=== PATIENT | male | born 1995 | race Two or more races ===

== ENCOUNTER 2024-12-11 11:46 | Emergency (ER) | payer MEDICAID, SELFPAY ==
[2024-12-11 11:51] VITALS: BP 119/83; PULSE 88; RESP 17; TEMP 36.9; O2SAT 98; BMI 20.9
[2024-12-11 12:06] VITALS: BMI 20.9
[2024-12-11 14:21] VITALS: BP 135/82; PULSE 67; RESP 17; TEMP 37.1; O2SAT 100
--- NOTE | 2024-12-11 15:09 | PD.EDMEDCL ---
ED Medical Clearance RME/HPI General Chief complaint: Medical Clearance Stated complaint: LONGTERM CLEARANCE Time Seen by Provider: 12/11/24 12:47 Arrival date/time: 12/11/24 11:46 Limitations: no limitations RME / HPI RME / HPI Narrative: DR. MCCALL MAIN ED EVALUATION: 29 year old male with no past medical history presents to the Emergency Department brought in by police as a medical clearance for chronic right finger infection. Patient states this is a chronic problem and he would not have been to the emergency department if he was not arrested. Patient was seen here on 10/09/23 for the same right index infection and was treated with Clindamycin at that time. Patient denies any new trauma. Related Information Previous Rx's ?Medication ?Instructions ?Recorded doxycycline hyclate 100 mg capsule 100 mg PO BID #20 caps 12/11/24 Allergies Allergy/AdvReac Type Severity Reaction Status Date / Time No Known Allergies Allergy Verified 12/11/24 12:11 Review of Systems Review of Systems Systems Reviewed: All systems reviewed, normal except as documented Narrative Review of Systems: GEN: No fever, no chills, no weight loss EYES: No discharge, no visual changes, no pain HEENT: No ear pain, no congestion, no sore throat PULM: No shortness of breath, no cough, no congestion CV: No chest pain, no dyspnea on exertion, no palpitations GI: No nausea, no vomiting, no diarrhea, no pain, no constipation : No frequency, no urgency and no dysuria MUSC/SKEL: No joint pain, no back pain SKIN: No rash. + chronic right finger infection PSYCH: No hallucinations, no depression HEME/LYMPH: No easy bleeding or bruising tendencies NEURO: No weakness, no headache Past Medical History Social History SMOKING STATUS: Current every day smoker SUBSTANCE USE: unknown ALCOHOL: Never ED Exam General Limitations: Present no limitations General appearance: Present alert, in no apparent distress and other (disheveled, hands cuffed) Head Head exam: Present atraumatic, normocephalic and normal inspection Eye Eye exam: Present normal appearance, PERRL and EOMI ENT ENT exam: Present normal exam, normal oropharynx and mucous membranes moist Neck Neck exam: Present normal inspection, full ROM and trachea midline Chest Chest inspection: Present normal inspection and symmetric chest wall rise Respiratory Respiratory exam: Present normal lung sounds bilaterally Cardiovascular Cardiovascular exam: Present regular rate, normal rhythm and normal heart sounds Abdominal Exam Abdominal exam: Present soft and normal bowel sounds Extremities Exam Extremities exam: Present full ROM Expanded Upper Extremity Exam Hand exam: Present other (right index finger is missing a part, which is chronic; swelling to the dorsal right index finger, no errhythema, no tenderness on flexor tendon sheath; NV is intact) Back Exam Back exam: Present normal inspection and full ROM Neurological Exam Neurological exam: Present alert, oriented X3 and CN II-XII intact Psychiatric Psychiatric exam: Present normal affect and normal mood Skin Skin exam: Present warm, dry, intact and normal color Course Quality Measures none Orders Category Date Time Status Doxycycline [Vibramycin] Med 12/11/24 15:18 Discontinued 100 mg PO X1 ONE Vital Signs Vital signs: Vital Signs Temperature 98.4 F 12/11/24 11:51 Pulse Rate 88 12/11/24 11:51 Respiratory Rate 17 12/11/24 11:51 Blood Pressure 119/83 12/11/24 11:51 Pulse Oximetry (%) 98 12/11/24 11:51 Oxygen Delivery Method Room Air 12/11/24 11:51 Medical Clearance MDM Narrative MDM Narrative:: Monique Peterson am scribing for and in the presence of Dr. Mccall. Patient data External records reviewed:: [facility] previous records (Reviewed last ED visit dated 10/09/23, discharged with the following: Cellulitis.) Clinical information provided by:: patient and law enforcement Social determinants that could affect healthcare access:: housing (homeless) Patient has the following chronic illnesses:: Chronic cellulitis How is presenting disease/condition affected by chronic disease/condition?: exacerbated by Evaluation data The following diagnostics were reviewed and interpreted by me:: other (specify) (none) Lab and/or radiology exams considered but not ordered:: none Interpretation Summary: n/a Medications / Prescriptions Medications or Prescriptions considered but not ordered:: none Medication administrations:: Medication Administration History Discontinued Medications Doxycycline Hyclate (Doxycycline 100 Mg Tablet) 100 mg PO X1 ONE Stop: 12/11/24 15:19 Last Admin: 12/11/24 15:36 Dose: 100 mg Documented By: SF see above Consultations Consultation(s) initiated? (list below): No Diagnosis Medical Clearance Differential Diagnosis: other (chronic finger infection, homelessness, abscess, cellulitis) Most likely diagnosis given after review of the tests above:: Chronic cellulitis Admission Indicated Admission indicated?: not indicated Admission Request Was there a request for admission?: No Disposition Plan Disposition Plan: Discharge ([facility] Discharge Attestation Discharge Attestation: The patient and all family members were given an opportunity to ask questions and understood the discharge instructions. Discharge instructions specifically effects, indications for sooner follow up or return to the emergency department, and the expected course of current diagnosis. Patient condition: Stable Discharge Plan Plan Patient Disposition: Shelter/Court/Law Patient condition on transfer: Stable Prescriptions/Referrals Prescriptions/Med Rec: New doxycycline hyclate 100 mg capsule 100 mg PO BID Qty: 20 0RF Referrals: Family healthcare network [Other] - In 1 week No Primary/Family,Physician [Primary Care Provider] - In 1 week Problem List Clinical Impression: Chronic cellulitis Patient/Caregiver Discharge Instructions Education Materials: ED Cellulitis Additional Instructions: Today you look to have a chronic infection of your finger. I will put you on a different antibiotic. Please take it completely for the next 10 days. You can take [id number] Tylenol 650 mg every 3-4 hours as needed for the next 2 days. You need to follow-up with your primary care physician in the next 1 week for follow-up to see if you need a referral and/or just to get primary care physician If you are having worse pain, fever, discharge, or or any other concerns you should return to the emergency department before your appointment. Print Language: Croatian
[2024-12-11] MEDS: DOXYCYCLINE 100 MG TABLET PO (15:36)
== END 2024-12-11 15:40 ==
PROVIDERS: Emergency Provider Emergency Medicine
DX: Z02.89 Encounter for other administrative examinations (principal); L03.011 Cellulitis of right finger; Z59.00 Homelessness unspecified; Z65.3 Problems related to other legal circumstances
CPT/HCPCS: 99282; A9270